=== PATIENT | female | born 1965 | race Asian ===

== ENCOUNTER 2023-09-28 13:01 | Outpatient (CLI) | payer OTHER, SELFPAY | END 2023-09-28 13:02 | disposition home or self-care (01) | LOC: LBO 13:02 | PROVIDERS: Visit Provider Internal Medicine Hematology | DX: C91.10 Chronic lymphocytic leukemia of B-cell type not having achieved remission (principal) | CPT/HCPCS: 36415; 81405 ==

== ENCOUNTER 2023-10-10 12:23 | Outpatient (REF) | payer OTHER, SELFPAY ==
[2023-10-10 15:33] LABS: Anion Gap 11.9 mmol/L (3-11); BUN 11 mg/dL (7-18); CO2 25.1 mmol/L (21.0-32.0); CREATININE 0.7 mg/dL (0.55-1.02); Calcium 9.3 mg/dL (8.5-10.1); Chloride 105 mmol/L (98-107); Estimated GFR 100.19 (mL/min/1.73m2); Glucose 104 mg/dL (74-106); Potassium 4.6 mmol/L (3.5-5.1); Sodium 142 mmol/L (136-145); Vitamin B12 342 pg/mL (193-986)
[2023-10-10 15:55] LABS: Hemoglobin A1C 6.1 % (<5.7)
== END 2023-10-10 12:24 | disposition home or self-care (01) ==
LOC: NCHCN 12:23
PROVIDERS: Visit Provider Family Medicine
DX: E11.9 Type 2 diabetes mellitus without complications (principal); I10 Essential (primary) hypertension; E53.8 Deficiency of other specified B group vitamins
CPT/HCPCS: 80048; 82607; 83036

== ENCOUNTER → 2023-10-11 01:46 | Outpatient (CLI) | payer OTHER, SELFPAY ==
--- NOTE | 2023-10-11 09:43 | DI.RAD_ITS ---
Exam(s) XR KNEE LT 3V AP,LAT,KATINA EXAM: XR KNEE LT 3V AP,LAT,KATINA CLINICAL HISTORY: LT KNEE PAIN, M25.562. TECHNIQUE: 2D digital imaging was performed of the left knee. Four images were obtained. AP, later al and PA tunnel views were obtained. COMPARISON: No exams were available for comparison FINDINGS: BONES: No acute fracture is present. No bony destructive lesion is seen. JOINTS: The knee is normally aligned. There is a small joint effusion. Mild spurring is seen at the posterior patella. No loose body. SOFT TISSUE: Normal. IMPRESSION: 1. Normal radiographs of the left knee. Mild degenerative changes of the knee. 2. Small joint effusion. DATA REPOSITORY: RADIATION DOSE DELIVERED:
== END ==
PROVIDERS: Visit Provider Family Medicine
DX: M25.562 Pain in left knee (principal)
CPT/HCPCS: 73562

== ENCOUNTER 2023-12-15 12:05 | Outpatient (CLI) | payer OTHER, SELFPAY ==
[2023-12-15 11:02] LABS: Abs Immature Grans 0.01 10^3/uL (0.0-0.06); Absolute Basophil Count 0.07 10^3/uL (0.0-0.2); Absolute Eosinophil Count 0.15 10^3/uL (0.0-0.7); Absolute Lymphocyte Count 1.87 10^3/uL (1.2-3.4); Absolute Monocyte Count 0.43 10^3/uL (0.1-0.8); Absolute Neutrophil Count 3.76 10^3/uL (1.2-6.7); Basophils % 1.1 %; Eosinophils % 2.4 %; HCT 41.2 % (36.0-46.0); HGB 13.8 g/dL (11.2-15.7); Immature Grans % 0.2 %; Lymphocytes % 29.7 %; MCH 29.4 pg (27.0-33.0); MCHC 33.5 % (32.0-36.0); MCV 88 fL (80-95); MPV 9.1 fL (8.0-11.0); Monocytes % 6.8 %; Neutrophils % 59.8 %; Platelet Count 287 10^3/uL (130-400); RDW 13.2 % (11.7-14.6); RDW-SD 42.5 fL; WBC 6.29 10^3/uL (4.4-10.8)
[2023-12-15 11:48] LABS: Iron 65 ug/dL (50-170); Total Iron Binding Capacity 380 ug/dL (250-450); Transferrin Sat 17 % (15-50)
[2023-12-15 11:59] LABS: ALT 108 U/L (14-59); AST 55 U/L (15-37); Alkaline Phosphatase 130 U/L (46-116); Anion Gap 13.4 mmol/L (3-11); BUN 12 mg/dL (7-18); CO2 23.6 mmol/L (21.0-32.0); CREATININE 0.8 mg/dL (0.55-1.02); Calcium 9.3 mg/dL (8.5-10.1); Chloride 106 mmol/L (98-107); Estimated GFR 85.35 (mL/min/1.73m2); Ferritin 72 ng/mL (8-252); Glucose 103 mg/dL (74-106); Sodium 143 mmol/L (136-145); Total Protein 7.9 g/dL (6.4-8.2)
[2023-12-15 12:22] LABS: LDH 185 U/L (81-234)
[2023-12-15 20:06] LABS: HBs Antibody, Quant <3.1 mIU/mL (See Note); Hepatitis B Surface Ab Negative (See Note)
[2023-12-15 20:20] LABS: Hepatitis B Surface Ag Negative (Negative)
[2023-12-15 20:55] LABS: Hep B Core Antibody Negative (Negative)
[2023-12-15 20:58] LABS: HIV-1/2 Ag & Ab Screen Negative (Negative)
[2023-12-15 21:12] LABS: Hepatitis C Ab w Rflx HCV PCR Negative (Negative)
[2023-12-16 09:07] LABS: IgA 257 mg/dL (85-499); IgG 1216 mg/dL (610-1616); IgM 48 mg/dL (35-242)
[2023-12-16 18:24] LABS: Beta-2-Microglobulin 1.54 mcg/mL
== END 2023-12-15 12:06 | disposition home or self-care (01) ==
LOC: LBO 12:29
PROVIDERS: PCP Family Medicine; Visit Provider Internal Medicine Hematology & Oncology
DX: C91.12 Chronic lymphocytic leukemia of B-cell type in relapse (principal)
CPT/HCPCS: 36415; 80053; 82784; 86704; 86706; 86803; 87340; 87389; 82232; 82728; 83540; 83550; 83615; 85025

== ENCOUNTER 2023-12-15 14:39 | Outpatient (CLI) | payer OTHER, SELFPAY ==
--- NOTE | 2023-12-15 09:00 | DI.RAD_ITS ---
Exam(s) XR HIP LT COMPLETE AP PELVIS EXAM: XR HIP LT COMPLETE AP PELVIS CLINICAL HISTORY: hip pain. TECHNIQUE: 2D digital imaging was performed of the left hip. Two views were obtained. AP pelvis an d lateral left hip views were obtained. COMPARISON: No exams were available for comparison FINDINGS: BONES: No acute fracture is present. No bony destructive lesion is seen. JOINTS: No dislocation present. There is mild narrowing of the superior joint space of the left hip. Mild spurring is seen in the lateral acetabular roof. SOFT TISSUE: There is a vascular clips seen in the pelvis. IMPRESSION: Mild degenerative changes are seen in the left hip. DATA REPOSITORY: RADIATION DOSE DELIVERED:
== END 2023-12-15 14:40 | disposition home or self-care (01) ==
LOC: DIORS 15:22
PROVIDERS: PCP Family Medicine; Visit Provider Student in an Organized Health Care Education/Training Program
DX: M25.552 Pain in left hip (principal)
CPT/HCPCS: 20610; 99203; J1010; 73502

== ENCOUNTER 2024-01-11 16:49 | Outpatient (REF) | payer OTHER, SELFPAY ==
[2024-01-11 15:22] LABS: Vitamin B12 272 pg/mL (193-986)
== END 2024-01-11 16:50 | disposition home or self-care (01) ==
LOC: NCHCN 16:49
PROVIDERS: PCP Family Medicine; Visit Provider Family Medicine
DX: E53.8 Deficiency of other specified B group vitamins (principal)
CPT/HCPCS: 82607

== ENCOUNTER → 2024-02-09 13:29 | Outpatient (BNVA) | payer OTHER, SELFPAY | PROVIDERS: PCP Family Medicine; Referring Provider Family Medicine; Visit Provider Student in an Organized Health Care Education/Training Program | DX: M17.12 Unilateral primary osteoarthritis, left knee (principal) | CPT/HCPCS: 99214 ==

== ENCOUNTER 2024-03-05 03:51 | Outpatient (CLI) | payer OTHER, SELFPAY ==
[2024-03-05 15:32] LABS: HCT 42.5 % (36.0-46.0); MCH 29.6 pg (27.0-33.0); MCHC 32.9 % (32.0-36.0); MCV 90 fL (80-95); MPV 8.8 fL (8.0-11.0); Platelet Count 300 10^3/uL (130-400); RBC 4.73 10^6/uL (3.93-5.22); RDW 13.2 % (11.7-14.6); RDW-SD 43.6 fL; WBC 7.55 10^3/uL (4.4-10.8)
[2024-03-05 15:52] LABS: Hemoglobin A1C 5.9 % (<5.7)
[2024-03-05 16:17] LABS: BUN 10 mg/dL (7-18); CREATININE 0.9 mg/dL (0.55-1.02); Calcium 9.4 mg/dL (8.5-10.1); Chloride 106 mmol/L (98-107); Estimated GFR 73.64 (mL/min/1.73m2); Glucose 95 mg/dL (74-106); Potassium 3.8 mmol/L (3.5-5.1); Sodium 143 mmol/L (136-145)
== END 2024-03-05 03:52 | disposition home or self-care (01) ==
LOC: LBO 03:52
PROVIDERS: PCP Family Medicine; Visit Provider Student in an Organized Health Care Education/Training Program
DX: M17.12 Unilateral primary osteoarthritis, left knee (principal); Z01.818 Encounter for other preprocedural examination; E11.9 Type 2 diabetes mellitus without complications
CPT/HCPCS: 36415; 80048; 85027; 83036

== ENCOUNTER 2024-03-05 15:49 | Outpatient (CLI) | payer OTHER, SELFPAY ==
--- NOTE | 2024-03-05 14:30 | DI.RAD_ITS ---
Exam(s) XR KNEE LT 1V XR STANDING ALIGNMENT EXAM: XR STANDING ALIGNMENT and XR knee LT 1 V CLINICAL HISTORY: pre op. TECHNIQUE: 2D digital imaging was performed. Six images were obtained. COMPARISON: CR XR KNEE LT 3V AP,LAT,KATINA from 10/11/2023 CR XR HIP LT COMPLETE AP PELVIS from 12/15/2023 FINDINGS: BONES: The hips are well maintained. The right knee is well maintained. There osteophytes seen in a ll 3 joint compartments of the left knee. There is mild narrowing of the medial femoral tibial joint . There is a small left joint effusion. The ankles are well maintained.There is no significant leg length discrepancy. SOFT TISSUE: Normal. IMPRESSION: Degenerative changes seen in the left knee. DATA REPOSITORY: RADIATION DOSE DELIVERED:
== END 2024-03-05 15:50 | disposition home or self-care (01) ==
LOC: DIORS 15:49
PROVIDERS: PCP Family Medicine; Visit Provider Physician Assistant
DX: M17.12 Unilateral primary osteoarthritis, left knee (principal); Z01.818 Encounter for other preprocedural examination
CPT/HCPCS: 73560; 77073

== ENCOUNTER 2024-04-18 08:50 | Day surgery (SDC) | payer OTHER, SELFPAY ==
[2024-04-18] VITALS (22 sets, daily range): BP systolic 104–176; BP diastolic 47–85; PULSE 57–99; RESP 11–22; TEMP 36–36.6; O2SAT 67–99; BMI 25.8
--- NOTE | 2024-04-18 07:25 | PDOC.DSDIS_ITS ---
Date of service: 04/18/24 Time of Service: 07:25 Discharge Plan Disposition Patient Disposition: Home Condition: Good Discharge Details Reason For Visit: L TKR Attending Provider: Singh Conteh Primary Care Provider: Celi Kulkarni Home Meds and New Rx's Prescriptions: New celecoxib 200 mg capsule 200 mg PO BID Qty: 60 0RF aspirin 81 mg tablet,delayed release (DR/EC) 81 mg PO BID Qty: 60 0RF tramadol 50 mg tablet 50 mg PO Q4H PRNQty: 20 0RF acetaminophen 500 mg tablet 1,000 mg PO TID Qty: 90 3RF pantoprazole 40 mg tablet,delayed release (DR/EC) 40 mg PO DAILY Qty: 30 0RF dexamethasone 4 mg tablet 4 mg PO DAILY Qty: 2 0RF gabapentin 300 mg capsule 300 mg PO QHS Qty: 14 0RF Continued rosuvastatin 10 mg tablet 10 mg PO DAILY losartan 25 mg tablet 25 mg PO DAILY metformin 1,000 mg tablet 1,000 mg PO BID Discharge Instructions Additional Instructions: Total Knee Discharge Instructions Activity: The most important activity is to walk and to work on gentle motion (both flexion and extension). You should try to take short walks a few times a day. It is important that when resting you work on keeping the knee straight. Avoid putting a pillow behind the knee as this will encourage flexion. Work on range of motion exercises as provided by Physical Therapy. - Start outpatient physical therapy within 2 weeks. - You should wear the DERRICK hose on both legs for 2 weeks. You may remove these at night. You may also use any compression sock in place of the DERRICK hose. - Utilize [employer] to review exercises, see videos on exercises and obtain basic information pertaining to your surgery and your recovery. Dressing: Remove the Forrest wrap by 2 days after your surgery and put on the DERRICK stocking given to you from the hospital. Keep the surgical dressing (underneath the FORREST wrap) in place for at least one week. After the first week it may be removed and replaced with light gauze and tape or nothing. The wound and dressing may get wet after 3 days but avoid soaking the dressing or otherwise it will need to be changed. Many people prefer covering the dressing with cling wrap (saran wrap) to minimize it from getting soaked. If it gets wet, just pat dry. If it starts to peel off then it will need to be changed. Medications: - You should take Tylenol and anti-inflammatory Celebrex as your primary pain control medications. If the Celebrex is too expensive or not covered, please call the office for another alternative (Advil/Ibuprofen or Naproxen/Aleve) - You have been prescribed a stronger pain medication tramadol for breakthrough pain, take as needed as prescribed. - You have also been prescribed a stomach acid reduction agent Pantoprozole to help reduce stomach acid and reflux. - You have been prescribed Gabapentin to take at night for restlessness and nerve pain. - You will be taking Aspirin 81mg twice a day for DVT prevention unless instructed otherwise. - You have also been prescribed Decadron to take to control post-operative nausea and pain. You will start this tomorrow. - If you have constipation you should take Colace or Miralax (both [id number]). It takes most people 3-4 days to have a bowel movement. Follow-up: 2 weeks If you have any acute concerns or questions, please do not hesitate to contact the office at [phone]. You may contact Dr. Conteh with any questions after hours through the hospital at [phone] or on his cell phone at [phone]. Referrals: Singh Conteh MD [ [facility] STAFF PHYSICIAN] - Equipment/Supplies: Walker Activity:: Activity as Tolerated Shower/Bathe:: 72 hours Diet:: As Tolerated Discharge Orders Discharge Orders: Discharge Order (Routine); Ordered 04/18/24 Ordered By: Isidoro Allen DS: Diagnosis Discharge Diagnosis (1) Osteoarthritis of left knee: Status: Chronic
--- NOTE | 2024-04-18 07:53 | ANES.PREOP_ITS ---
General Info Date of Service Date Performed: 04/18/24 Height: 4 ft 11.5 in Weight: 58.967 kg Body Mass Index (BMI): 25.8 Surgical Procedure: Operation Date: 04/18/24 09:55 Proposed Procedure Side Surgeon p Knee Total Arthroplasty, Cementless Left Singh Conteh MD Meds Allergies and Home Medications Allergies Allergy/AdvReac Type Severity Reaction Status Date / Time oxycodone AdvReac Nausea Verified 04/18/24 09:15 Home Medication ?Medication ?Instructions ?Recorded losartan 25 mg tablet 25 mg PO DAILY 08/16/23 metformin 1,000 mg tablet 1,000 mg PO BID 08/16/23 rosuvastatin 10 mg tablet 10 mg PO DAILY 08/16/23 acetaminophen 500 mg tablet 1,000 mg (2 x 500 mg) PO TID #90 04/18/24 tabs aspirin 81 mg tablet,delayed 81 mg PO BID #60 tabs 04/18/24 release celecoxib 200 mg capsule 200 mg PO BID #60 caps 04/18/24 dexamethasone 4 mg tablet 4 mg PO DAILY #2 tabs 04/18/24 gabapentin 300 mg capsule 300 mg PO QHS #14 caps 04/18/24 pantoprazole 40 mg tablet,delayed 40 mg PO DAILY #30 tabs 04/18/24 release tramadol 50 mg tablet 50 mg PO Q4H PRN #20 tabs 04/18/24 Current Visit Medications: Current Medications Generic Name Dose Route Start Last Admin Trade Name Freq PRN Reason Stop Dose Admin Acetaminophen 1,000 mg 04/18/24 06:00 Acetaminophen 500 Mg Tab PO 04/18/24 23:59 PREOP KYA Acetaminophen 1,000 mg 04/18/24 07:24 Acetaminophen 500 Mg Tab PO 05/18/24 07:23 TID PRN PRN Analgesia Celecoxib 400 mg 04/18/24 06:00 Celecoxib 200 Mg Cap PO 04/18/24 23:59 PREOP KYA Docusate Sodium 100 mg 04/18/24 07:24 Docusate Sodium 100 Mg Cap PO 05/18/24 07:23 BID PRN PRN Constipation Gabapentin 300 mg 04/18/24 06:00 Gabapentin 300 Mg Cap PO 04/18/24 23:59 PREOP KYA Ringer's Solution 1,000 mls @ 80 mls/hr 04/18/24 06:00 IV 04/18/24 23:59 INFUSION KYA Cefazolin Sodium/Dextrose 2 gm in 50 mls @ 100 mls/hr 04/18/24 06:00 Ancef Duplex IVPB 04/18/24 23:59 PREOP KYA Tranexamic Acid/Sodium Chloride 1,000 mg in 100 mls @ 600 mls/hr 04/18/24 06:00 IVPB 04/18/24 23:59 PREOP KYA IV Miscellaneous Supplies 1 each 04/18/24 06:00 Iv Access IV 04/18/24 23:59 DIRECTED KYA Ondansetron HCl 4 mg 04/18/24 07:24 Ondansetron 4 Mg/2 Ml Vial IVP 05/18/24 07:23 Q6H PRN PRN Nausea Polyethylene Glycol 17 gm 04/18/24 07:24 Polyethylene Glycol 3350 17 Gm Packet PO 05/18/24 07:23 BID PRN PRN Constipation Sodium Chloride 0 ml 04/18/24 06:00 Normal Saline Flush 10 Ml Syr IV 04/18/24 23:59 PRN PRN Sodium Chloride 0 ml 04/18/24 06:00 Normal Saline 10 Ml Vial IJ 04/18/24 23:59 DIRECTED PRN Sterile Water 0 ml 04/18/24 06:00 Water,Injection,Sterile 10 Ml Vial IJ 04/18/24 23:59 DIRECTED PRN Tramadol HCl 50 mg 04/18/24 07:24 Tramadol 50 Mg Tab PO 05/18/24 07:23 Q4H PRN PRN Pain PFSH Active Problems Active Problems: Problem Status Onset Code Arthritis of left hip Acute M16.12 Left hip pain Acute M25.552 Osteoarthritis of left knee Chronic M17.12 Diabetes mellitus Chronic E11.9 Vitamin D deficiency Acute E55.9 B-cell chronic lymphocytic leukemia Acute C91.10 Mixed hyperlipidemia Acute E78.2 Essential hypertension Acute I10 Medical History Medical History (Updated 04/18/24 @ 09:27 by Armando Snyder RN) Chronic a-fib Per pt. states she no longer has this as she had a cardiac ablation done 4 years ago in [place] B12 deficiency Surgical History Surgical History (Updated 04/18/24 @ 09:27 by Armando Snyder RN) History of cardiac radiofrequency ablation (~2019) Status post cholecystectomy H/O right breast biopsy History of carpal tunnel release Left Tobacco Smoking/Tobacco Use Status: Never Alcohol Alcohol Intake: current Alcohol intake frequency: holidays/special occasions only Substance Use Substance use: Never Substance use type: does not use Vital Signs and Lab Results Vital Signs Most Recent Vital Signs in EMR: Temp Pulse Resp BP Pulse Ox 36.6 C 70 16 158/85 H 98 04/18/24 09:19 04/18/24 09:19 04/18/24 09:19 04/18/24 09:19 04/18/24 09:19 Lab Results Blood Type / Crossmatch: No Data to Display Complete Blood Count: No Data to Display Complete Metabolic Panel: No Data to Display Liver Function Panel: No Data to Display Coagulation Panel: No Data to Display Cardiac Panel: No Data to Display Arterial Blood Gas: No Data to Display Venous Blood Gas: No Data to Display Pancreas Panel: No Data to Display Thyroid Panel: No Data to Display Infectious Disease: No Data to Display Blood Cultures: No Data to Display Toxicology Panel: No Data to Display Anesthesia Assessment and Plan Anesthesia History Personal History: No History of Anesthesia Complications Family History: No Family History of Anesthesia Complications Exercise Tolerance Exercise Tolerance: Metabolic Equivalents>4 Cardiac & Pulmonary Exam Cardiac Exam: Normal S1/S2 Heart Sounds Pulmonary Exam: Clear Bilateral Breath Sounds Implantable Cardiac Device Does patient have a Pacemaker or an ICD?: No Airway Exam Known Difficult Airway: No Mallampati Class: 3 Mouth Opening: Narrow (< 3cm) Thyromental Distance: Greater than 3 cm Neck Range of Motion: Full ROM Neck Circumference: Normal Teeth Condition: Normal Dentition ASA Classification ASA Score: ASA 2 Emergency Case?: No NPO Status NPO Status: NPO Clears >2 hours, Solids >8 hours Anesthesia Plan Resuscitation Status: Full Code Anesthesia Technique: Spinal Anesthesia Airway Planned: Natural Airway Pain Management: Surgeon and patient request nerve block Monitors Used: Standard Monitors Preoperative Comments:: 59 yo female for TKA. Sig PMHx: s/p SVT/afib ablation (no episodes of afib since, doing well), HTN (losartan - hasn't taken in ~a month. Home BPs 130-140/60-70s), DM2 (a1c 5.9%. Metformin. does not check BS at home), CLL, never smoker, occ EtOH. Denies GERD appropriately NPO. Discussed GA vs spinal, would like spinal.
[2024-04-18] MEDS: Acetaminophen 500 MG TAB 1000 MG PO (09:40)
[2024-04-18] MEDS: Gabapentin 300 MG CAP PO (09:40)
[2024-04-18] MEDS: Celecoxib 200 MG CAP 400 MG PO (09:41)
--- NOTE | 2024-04-18 09:41 | HPE_ITS ---
Assessment and Plan Assessment and plan (1) Arthritis of left knee: Status: Acute Assessment and plan: Jo is a 59-year-old female who has known arthritis about the left knee. She is failed other nonoperative options and is here today for left knee replacement. I had a long discussion in regards to surgical replacement of the knee. I reviewed the necessary time for rehabilitation following the procedure. Furthermore, I went over in detail the possible complications of knee replacement. These include but are not limited to bleeding, infection, pain, stiffness, weakness, damage to nerves, damage to vessels, damage to muscle and tendon, fracture, leg length inequality, wound healing complications, instability, component loosening, and blood clot. Questions were answered. I again expressed that this is a surgery to improve functional quality of life. After a review of the presented information and risks, she desired to proceed. History of Present Illness History of Present Illness Chief Complaint: Left knee pain Narrative: Jo is a 59-year-old female who has ongoing left knee pain. She has failed a host of conservative options including injection, anti-inflammatories, physical therapy, and activity modification. Her knee bothers her with all activities. She has arthritis about the left knee and is electing for knee replacement. She is here today for that procedure. Please see the previous history and physical performed in the office. Her surgery was postponed due to an upper respiratory infection. She no longer has any symptoms of cough. She denies any chest pain or shortness of breath. She denies any fevers or chills. Review of Systems All systems reviewed & are unremarkable except as noted in HPI and below PFSH All Active Problems (Updated 04/18/24 @ 09:43 by Singh Conteh MD) Arthritis of left knee (Acute) History of total left knee replacement (Acute 04/18/24) Arthritis of left hip (Acute) Left hip pain (Acute) Diabetes mellitus (Chronic) Vitamin D deficiency (Acute) B-cell chronic lymphocytic leukemia (Acute) Mixed hyperlipidemia (Acute) Essential hypertension (Acute) Medical History Chronic a-fib Per pt. states she no longer has this as she had a cardiac ablation done 4 years ago in [place] B12 deficiency Surgical History History of cardiac radiofrequency ablation (~2019) Status post cholecystectomy H/O right breast biopsy History of carpal tunnel release Left Social History Smoking/Tobacco Use Status: Never Smoking risk assessment performed?: Yes Alcohol Intake: current Alcohol Intake frequency: holidays/special occasions only Drug use: Never Substance use type: does not use Housing: house Do you feel safe at home: Yes Do you feel safe in your relationship?: Yes Meds Allergies and Home Medications Allergies Allergy/AdvReac Type Severity Reaction Status Date / Time oxycodone AdvReac Nausea Verified 04/18/24 09:15 Home Medications ?Medication ?Instructions ?Recorded ?Confirmed ?Type losartan 25 mg tablet 25 mg PO DAILY 08/16/23 04/18/24 History metformin 1,000 mg tablet 1,000 mg PO BID 08/16/23 04/18/24 History rosuvastatin 10 mg tablet 10 mg PO DAILY 08/16/23 04/18/24 History acetaminophen 500 mg tablet 1,000 mg (2 x 500 mg) PO TID #90 04/18/24 Rx tabs aspirin 81 mg tablet,delayed 81 mg PO BID #60 tabs 04/18/24 Rx release celecoxib 200 mg capsule 200 mg PO BID #60 caps 04/18/24 Rx dexamethasone 4 mg tablet 4 mg PO DAILY #2 tabs 04/18/24 Rx gabapentin 300 mg capsule 300 mg PO QHS #14 caps 04/18/24 Rx pantoprazole 40 mg tablet,delayed 40 mg PO DAILY #30 tabs 04/18/24 Rx release tramadol 50 mg tablet 50 mg PO Q4H PRN #20 tabs 04/18/24 Rx Exam Const General: cooperative, healthy appearing, comfortable and no acute distress Resp Effort & Inspection: normal respiratory effort Auscultation: clear to auscultation bilaterally Cardio Rate: regular rate Rhythm: regular rhythm Results Last Vital Signs Temp 36.6 C 04/18/24 09:19 Pulse 70 04/18/24 09:19 Resp 16 04/18/24 09:19 BP 158/85 H 04/18/24 09:19 Pulse Ox 98 04/18/24 09:19
[2024-04-18] MEDS: Lactated Ringers 1,000 ML 80 ML IV (10:04)
--- NOTE | 2024-04-18 10:10 | W.ANESVAS ---
Midline Placement Date Performed: 04/18/24 Procedure Time: 09:40 Requesting Provider: Fabio Chin Procedure Location: Day Surgery Unit Sedation Given (Indicate Dose Given): No Sedation given Patient Mental Status: Awake Sterility: Hand Hygiene, Surgical Cap, Sterile Drape/Sheet and Chlorhexidine Laterality: Left Insertion Site: Brachial Midline Device: PowerGlide Pro 20G Catheter Length: 10 cm Midline Procedure Procedure: 1% Lidocaine to skin and subcutaneous tissue with 25g needle and Catheter placed without resistance Dressing: Tegaderm Applied Blood Return: Present Flushes: Easily Ultrasound: Sterile probe cover and gel used Ultrasound Image Saved?: Yes Number of Attempts (See previous attempts in note section): 1 Procedure Tolerated: No Complications Procedure Outcome: Successful Procedure Comment:: small veins, previous IV attempts without success. midline placed. Performed By: Fabio Chin
--- NOTE | 2024-04-18 10:12 | W.ANESNERVE ---
Nerve Block Single Injection Procedure Date and Time Date Performed: 04/18/24 Procedure Start: 09:51 Location Where Procedure Performed Procedure Location: Day Surgery Unit Reason Performed: Postoperative Analgesia Requesting Provider: Singh Conteh Timeout Performed Timeout Performed: Yes Monitoring Used ECG, Blood Pressure and SpO2 Sterility Sterility: Hand Hygiene, Surgical Cap, Surgical Mask, Sterile Gloves and Chlorhexidine Sedation Given During Procedure Sedation Given (Indicate Dose Given): No Sedation given Patient Mental Status Patient Mental Status: Awake Nerve Block 1st Nerve Block: Laterality: Left Block Type: Adductor Canal Ultrasound Image Saved?: Yes Needle / Catheter Used: 100mm SonoPlex II Local Anesthetic Bolus (Indicate Dose Given): Lidocaine used for local infiltration of skin and Bupivacaine 0.25% Dose:: 5 mL Additives (Indicate Dose Given): None Ultrasound: Sterile probe cover and gel used Nerve Stimulator: Supplement to Ultrasound use and No twitch or parasthesia noted < 0.5 mA Paresthesia: None Procedure Tolerated: No Complications Procedure Outcome: Successful Performed By: Fabio Chin 2nd Nerve Block: Laterality: Left Block Type: Other (anterior femoral cutaneous) Ultrasound Image Saved?: Yes Needle / Catheter Used: 100mm SonoPlex II Local Anesthetic Bolus (Indicate Dose Given): Bupivacaine 0.25% Dose:: 5 mL Additives (Indicate Dose Given): None Ultrasound: Sterile probe cover and gel used Nerve Stimulator: Not Used Paresthesia: None Procedure Tolerated: No Complications Procedure Outcome: Successful Performed By: Fabio Chin
[2024-04-18] MEDS: ceFAZolin 2 GM/50 ML BAG IVPB (10:24)
[2024-04-18] MEDS: TRANEXAMIC ACID/SOD. CHL. 1,000 MG/100 ML BAG 600 MG IVPB (10:32)
--- NOTE | 2024-04-18 12:10 | W.ANESPOSTOP ---
Postoperative Evaluation Date, Time and Location Date Performed: 04/18/24 Time Performed: 12:10 Patient Location: PACU Vital Signs Most Recent Imported Vital Signs: Most Recent Vital Signs Temp Pulse Resp BP Pulse Ox 36.2 C L 61 19 126/57 L 98 04/18/24 12:01 04/18/24 12:06 04/18/24 12:06 04/18/24 12:06 04/18/24 12:06 Pain Score Most Recent Pain Score: Most Recent Pain Score Pain Level 0 04/18/24 12:01 Assessment Mental Status: Awake (Alert & Oriented to Patient Baseline) Airway and Respiratory Function: Patent airway with normal (patient baseline) respiratory exam Cardiovascular Function: Hemodynamically Stable Hydration Status: Adequately Hydrated Nausea & Vomiting: No Nausea or Vomiting Pain: Pain is tolerable per patient (Reports heavy and tight but no pain) Peripheral Nerve Block: Regional nerve block not resolved at time of post operative discharge
--- NOTE | 2024-04-18 12:27 | W.PM.OP ---
Date of service: 04/18/24 Time of Service: 10:30 Operative Note Operative Note DATE OF PROCEDURE: 04/18/24 PRE-OP DIAGNOSIS: Left Knee Osteoarthritis POST-OP DIAGNOSIS: same PROCEDURE: Left Total Knee Replacement SURGEON: Singh Conteh REAL ESTATE PROFESSIONAL: Roldan Allen ANESTHESIA TYPE: Spinal Refer to Anesthesia Record ESTIMATED BLOOD LOSS: 50 PATHOLOGY: none sent TOURNIQUET TIME: 0 COMPLICATIONS: None Patient was transported to: PACU Patient's condition: stable Implants: 1. Depuy Attune Cementless Cruciate Retaining Femoral Component, Size 3 2. Depuy Attune Cementless Fixed Bearing Tibial Component, Size 3 3. Depuy Attune 3x6mm CR/FB Poly 4. Depuy Attune Patellar Component, Size 32 Indications: I have seen Jo in clinic for symptoms of knee arthritis, confirmed with radiographic findings. She has exhausted nonoperative methods and was having significant limitations in daily function and desired better function and less pain. I discussed the technical details of a knee replacement. I explained the risks of the procedure to include, but not limited to, bleeding, infection, pain, stiffness, fracture, damage to nerves and vessels, damage to muscles and tendons, loosening, need for repeat procedure, blood clot and cardiopulmonary demise. Despite these risks, Jo elected to proceed. Findings: There was notable chondromalacia and deformity of the medial femur primarily. Procedure Description: Jo was greeted in the preoperative holding area where the correct side was identified and marked. The consent was reviewed with the patient and signed. The history and physical was updated. All questions were answered. Preoperative medications were administered: Acetaminophen 1000mg, Celebrex 400mg, and Gabapentin 300mg. An adductor canal block was then administered by the anesthesia team in the PACU. She was taken back to the operating room. A spinal anesthestic was then administered. The patient was placed into the supine position on the operating room table. A nonsterile tourniquet was placed high onto the leg but only used for cementing. Posts were placed for positioning during the procedure. All bony prominences were well padded. Prophylactic antibiotics in the form of Cefazolin were administered. 1g of Tranxemic Acid was given intravenously within 30 minutes of incision. The left leg was then prepped with Chloraprep and draped in a standard fashion with impervious stockinette. A second prep with Chloraprep was performed prior to application of Iodine impregnated skin protection. A timeout to confirm correct identity, side and site, procedure, allergies, anesthesia, and medical concerns was performed. With the knee in some flexion, a midline incision was made overlying the knee. Full thickness skin flaps were raised once the extensor mechanism was encountered. These were raised medially and laterally. Any bleeding was controlled with electrocautery. Once the extensor mechanism was fully exposed, a medial parapatellar arthrotomy was performed in a flexed position. All bleeding from the arthrotomy and the geniculate arteries was coagulated. A medial subperiosteal peel was performed with electrocautery to the midcoronal plane. The fat pad was removed while keeping the patellar tendon protected. The anterior distal femur synovium was removed for later visualization. The ACL and PCL were resected and the anterior horn of the lateral meniscus was transected. The knee was then flexed with the patella everted. Using a step drill, and based on preoperative templating, the femoral canal was entered. This was done with a step drill without any difficulty. The intramedullary distal femoral cut guide was inserted, set to a 6 degree valgus cut and 9mm cut thickness. The distal femoral cut guide was then held in position and pinned. With the soft tissues protected, the distal cut was performed. This was passed over a few times to ensure a planar cut. I then turned attention to the tibia. The extramedullary guide was placed onto the leg. The distal aspect was slid medial to adjust for position of center of ankle and stay in line with shaft of the tibia. Approximately 3-5 degrees of posterior slope was kept in the proximal cutting guide. The center of the guide was aligned with the PCL. The stylus was used to assess cut thickness. The medial side, most involved side, was set for a 6mm cut, corresponding to 9mm laterally. This was then held in position and pinned into place with 2 additional pins and a cross pin for stability. The medial and lateral collateral ligaments were protected and the cut was performed. With this completed, it was assessed and noted to be of appropriate dimensions. The guide was removed. A spacer block was inserted and the knee was brought into extension. The 6mm spacer block provided full extension, without hyperextension and with stability of both the medial and lateral collateral ligaments was assessed. The pins from the femur and the tibia were then removed. The distal femur was then sized. The anterior stylus was placed onto the lateral ridge of the anterior femur. This indicated a size 3 femur. The external rotation of the guide was adjusted to 3 degrees to match the epicondylar axis, perpendicular to [place]?s line. The 4-in-1 cutting guide was the placed. The posterior medial femur cut was evaluated and appeared of good thickness. The spacer block was inserted underneath the cutting guide and stability was confirmed in 90 degrees of flexion. An juan f wing was used to confirm appropriate position of the anterior cut to avoid notching. This cutting guide was ensured to be flush on the cut surface and then pinned into place with headed pins. While protecting the soft tissues, quad tendon, and collateral ligaments, the anterior and posterior cuts were performed with a saw. The central two pins were removed and the posterior and anterior chamfers were cut next. The notch-cutting guide was placed. This was pinned to lateralize the femoral component as much as possible while keeping it flush on the cut surface. This was then pinned into position. A reciprocating saw was used to make the notch cut. A rasp smoothed the cut surfaces. The medial and lateral menisci were removed. A trial femoral component was then inserted, impacted down to the cut surfaces, and the lug holes were drilled. A provisional trial tibial component was placed and the knee was brought through range of motion. There was noted to be excellent extension and flexion. There was no significant instability. The patella was tracking without thumbs. A size 6mm polyethylene component provided the best range of motion and stability with less than 2mm gapping with medial and lateral stress and full extension without significant hyperextension. The tibial cut surface was fully exposed. The tibia was then sized as a 3. The tibia had been previously marked during trialing to correspond to the center of the tibial component to help with rotation. The trial was aligned to this roldan, approximately rotated to the medial 1/3rd of the tibial tubercle. The trial was pinned into place. The tibia was prepared with a reamer and a keel punch and lug holes. The knee was then brought into extension and the patella was measured as 21mm. Using the patellar clamp and cut guide, this was resected to a flat surface with at least 13mm of thickness remaining. The size 32 patella fit the best. This was oriented and then clamped into position. The lugs were drilled. The trial components were removed. The final components were opened on the back table. The periosteal and capsular tissues, especially posteriorly, around the knee were then systematically injected with a periarticular cocktail consisting of 246mg of Ropivacaine, 0.5mg of Epinephrine, 0.08mg of Clonidine, and 30mg of Ketorolac, diluted to 100cc. On the back table, with the implants opened, the cement was mixed. One batch of high viscosity cement was prepared with vacuum assistance. After the cement was ready a small amount was placed on the cut surface of the patella and the patellar button was clamped into position and held. While the cement was hardening, the cementless knee components were placed. Starting with the tibial component, the tibia was subluxed anteriorly and the lug holes of the component were lined up. The tibia was then impacted with an impactor and mallet until the tibial component was in contact with the tibia. The final polyethylene component was inserted. Then, the femoral component was inserted. The lug holes were aligned and the component was impacted into position. The knee was irrigated with Surgiphor Betadine solution. This was allowed to sit in the knee for 3 minutes and then it was irrigated out with saline. After the cement had finally cured, approximately 15min, the clamp was removed from the patella and the knee was taken through range of motion. The patella was tracking with a no-thumbs technique. The capsule was then reapproximated with a No. 1 Vicryl at multiple locations. The capsule was finally closed with a No. 2 Stratafix, barbed suture. The second dosing of 1g TXA was started. Deep tissues were then reapproximated with 0 Vicryl and 2-0 Vicryl. The skin was closed with a running 3-0 Monocryl in a subcuticular fashion. This was reinforced with skin glue. A Mepilex silver dressing was applied along with a [id number] JACOB wrap. A CryoCuff was applied. Jo was transferred to the hospital bed without difficulty an suffering no apparent complication. Jo has a good prognosis. Physical therapy will start today and without restrictions, weight-bearing as tolerated. Aspirin 81mg BID will be used for DVT prophylaxis.
[2024-04-18] MEDS: traMADol 50 MG TAB PO (12:51)
--- NOTE | 2024-04-18 14:23 | PT.INIE ---
PT Notes Visit Reasons: L TKR Physical Therapy Day Surgery Initial Evaluation Date: 04/18/2024 Referring Doctor: FRANCISCO Lopez PT Orders: PT CONSULT: S/P Ortho Surgery Precautions: WBAT on the L LE with AD. Patient Profile/Admitting Diagnosis: Jo is a 59-year-old female with degenerative joint disease of the L knee and is status post left total knee send postoperative day 0. PMHX: All Active Problems (Updated 04/18/24 @ 09:43 by Singh Conteh MD) Arthritis of left knee (Acute) History of total left knee replacement (Acute 04/18/24) Arthritis of left hip (Acute) Left hip pain (Acute) Diabetes mellitus (Chronic) Vitamin D deficiency (Acute) B-cell chronic lymphocytic leukemia (Acute) Mixed hyperlipidemia (Acute) Essential hypertension (Acute) Medical History Chronic a-fib Per pt. states she no longer has this as she had a cardiac ablation done 4 [place] ago [id number] deficiency Surgical History History of cardiac radiofrequency ablation (~2019) Status post cholecystectomy H/O right breast biopsy History of carpal tunnel release Left Social History/Home Situation: Lives with in a private home with 2 steps to enter. Has a flight of steps to the second floor of the house where bedroom is. Retired employee. Equipment Owned/DME: None Subjective: Reported intermittent nausea and lightheadedness throughout session. Nurse Sloane gave patient IV Zofran midway through the walk to minimize symptoms. Objective: General Observation: Forrest wraps to left knee. Cryo/Cuff to left knee. TDS as to right leg and foot. Mental Status: A and O x 4 [] Pain: 2-3/10 in the L knee ROM: Right Lower Extremity: Hip flexion WFL. Hip abduction WFL. Knee flexion WFL. Ankle dorsiflexion WFL. Ankle plantarflexion WFL. Left Lower Extremity: Hip flexion WFL. Hip abduction WFL. Knee flexion 0-90 degrees. Ankle dorsiflexion WFL. Ankle plantarflexion WFL. Strength: Right Lower Extremity: Hip flexors 5/5. Hip abductors 5/5. Knee flexors 5/5. Knee extensors 5/5. Ankle dorsiflexors 5/5. Ankle plantarflexors 5/5. Left Lower Extremity:Hip flexors 5/5. Hip abductors 5/5. Knee flexors 3-/5. Knee extensors 3/5. Ankle dorsiflexors 5/5. Ankle plantarflexors 5/5. Sensation: Intact tested pain and light pressure and bilateral lower extremities Bed Mobility/Transfers: Minimal cueing provided for use of B hands as needed for support, movement sequence, AD management, and posture to reduce fall risk and minimize pain report Supine to sit stand by assist Sit to stand contact guard assist with FWW Stand to sit contact guerline assist with FWW Bed to chair contact guard assist with FWW GAIT: Facilitated safe and correct performance of level surface ambulation covering a distance of 150 feet with reciprocal step-through heel-toe gait pattern using front wheeled walker with minimal verbal cueing for AD management, limb sequence/advancement, and posture to minimize pain report and reduce fall risk. STAIRS: Guided patient with safe and correct negotiation of 6 x 4 inch steps and 4 x 6 inch steps holding onto bilateral rails with step to gait pattern wearing minimal verbal cueing to increase knee flexion on the left during each ascent and for correct hand placement as well as correct sequence to minimize pain report and reduce fall risk. Balance: Static Sitting: Normal Dynamic Sitting: Normal Static Standing: Fair Dynamic Standing: Fair Special Tests: Mobility Limitations Standardized Measure [facility] AM-PAC 6 clicks Basic Mobility Inpatient Short Form: Raw Score: 19 CMS Score: 42% deficit Informed Consent/Education: Patient instructed in purpose of PT consult. Packet containing TKA exercise protocol has been given to patient. Education and training on initial set of exercises that can be done at home have been completed with patient. Trained patient with correct performance of exercises below to maximize motor control, joint flexibility, soft tissue extensibility of the [] knee musculature: Access Code: [email or web address] URL: [email or web address] Date: 04/17/2024 Prepared by: Joie Melgoza Exercises - Supine Quad Set - 1 x daily - 7 x weekly - 1 sets - 10 reps - 5 hold - Supine Heel Slide - 1 x daily - 7 x weekly - 1 sets - 10 reps - 5 hold - Supine Ankle Pumps - 1 x daily - 7 x weekly - 1 sets - 10 reps - 5 hold - Small Range Straight Leg Raise - 1 x daily - 7 x weekly - 1 sets - 10 reps - 5 hold - Seated March - 1 x daily - 7 x weekly - 1 sets - 10 reps - 5 hold Assessment: Jo is a 59-year-old female with degenerative joint disease of the left knee and is status post left total knee arthroplasty on postoperative day 0. Assessment limited and length send patient's intermittent report of lightheadedness and nausea which Nurse Sloane managed during sessio.n She requires the use of a front wheeled walker for mobility performance to maximize independence and reduce fall risk. Patient presents with clinical signs and symptoms consistent with current/admitting diagnoses that have resulted to mobility limitations, gait instability, generalized weakness, and impairment of motor control as demonstrated by the following impairment level findings: 1. Decreased strength to left knee major muscle groups 2. Impaired standing balance 3. Limitation of joint range of motion in left knee Impairments are contributing to the following functional limitations: 1. Inability to safely ambulate without assistive device 2. Increase completion time for mobility ADL performance 3. Increased fall risk Patient is assessed as a 98401 moderate complexity based on the following: History: 59-year-old female with impairment level findings, functional limitations, and past medical history as indicated above Examination: Demonstrable impairment in strength, balance, and mobility level with underlying impairments and functional limitations as documented above Presentation: Evolving Decision Makin moderate complexity Goals: N/A. PT evaluation and 1-2 treatment sessions only for functional mobility training using recommended AD and for HEP instruction. Plan of Care/Treatment Plan: N/A. PT evaluation and 1-2 treatment session only for functional mobility training using recommended AD and for HEP instruction. DISCHARGE RECOMMENDATIONS: Home when medically cleared by orthopedic surgeon. Recommend outpatient PT services in order to optimize functional mobility outcomes and facilitate return to independent community ambulation without an assistive device. TREATMENT CODE/TIME: 92198 x 20 minutes fr 1 unit, 52922 x 31 minutes for 2 units (14:23-15:14). Thank you for the opportunity to participate in the care of this patient. Please sign an return this page within 30 days if you agree with the above POC. Thank you! Physician Signature Date [facility] Joie Melgoza PT, DPT, CLT [facility] [place], [place]
[2024-04-18] MEDS: Ondansetron 4 MG/2 ML VIAL IVP ×2 (15:14→15:15)
== END 2024-04-18 15:35 | disposition home or self-care (01) ==
LOC: SUR 08:50
PROVIDERS: PCP Family Medicine; Visit Provider Student in an Organized Health Care Education/Training Program
PROC: (CPT 27447; principal; 2024-04-18 09:45)
DX: M17.12 Unilateral primary osteoarthritis, left knee (principal); E53.8 Deficiency of other specified B group vitamins; E11.9 Type 2 diabetes mellitus without complications; C91.10 Chronic lymphocytic leukemia of B-cell type not having achieved remission; I10 Essential (primary) hypertension; E78.2 Mixed hyperlipidemia; E55.9 Vitamin D deficiency, unspecified
CPT/HCPCS: 27447; 76942; 97162; 97530; C1776; J0665; J0690; J1100; J2371; J2401; J2405; J2704

== ENCOUNTER 2024-04-30 15:38 | Outpatient (CLI) | payer OTHER, SELFPAY ==
--- NOTE | 2024-04-30 13:15 | DI.RAD_ITS ---
Exam(s) XR STANDING ALIGNMENT EXAM: XR STANDING ALIGNMENT CLINICAL HISTORY: L TKR. TECHNIQUE: 2D digital imaging was performed. COMPARISON: CR XR STANDING ALIGNMENT from 03/05/2024 CR XR KNEE LT 1V from 04/30/2024 FINDINGS: There has been interval placement of a left knee prosthesis which appears satisfactory. The opposite-right knee appears unremarkable. Hips appear unremarkable as do the ankles. Bone densi ty normal. No osseous lesions. Sacroiliac joints appear unremarkable. There is, however, some tilting of the pelvis now evident. The superior aspect of the right femoral head is located approximately 1 cm higher than the left side. This finding was not evident on prior images of 03/05/2024. IMPRESSION: Left knee prosthesis appears satisfactory. Right knee appears unremarkable Pelvic tilt noted which was not previously evident on 04/30/2024. DATA REPOSITORY: RADIATION DOSE DELIVERED:
--- NOTE | 2024-04-30 13:15 | DI.RAD_ITS ---
Exam(s) XR KNEE LT 1V EXAM: XR KNEE LT 1V CLINICAL HISTORY: L TKR. TECHNIQUE: 2D digital imaging was performed. COMPARISON: CR XR KNEE LT 1V from 03/05/2024 FINDINGS: Single lateral view Satisfactory position alignment of the components of the recently placed prosthesis. No fracture or loosening evident this lateral view. IMPRESSION: Satisfactory appearance on this single lateral view. DATA REPOSITORY: RADIATION DOSE DELIVERED:
== END 2024-04-30 15:39 | disposition home or self-care (01) ==
LOC: DIORS 15:38
PROVIDERS: PCP Family Medicine; Referring Provider Family Medicine; Visit Provider Physician Assistant
DX: Z96.652 Presence of left artificial knee joint (principal)
CPT/HCPCS: 73560; 77073

== ENCOUNTER 2024-05-04 09:40 | Outpatient (CLI) | payer OTHER, SELFPAY ==
[2024-05-04 09:32] LABS: Abs Immature Grans 0.08 10^3/uL (0.0-0.06); Absolute Basophil Count 0.08 10^3/uL (0.0-0.2); Absolute Lymphocyte Count 2.26 10^3/uL (1.2-3.4); Absolute Monocyte Count 0.64 10^3/uL (0.1-0.8); Basophils % 0.7 %; Eosinophils % 4.4 %; HCT 35.2 % (36.0-46.0); HGB 11.3 g/dL (11.2-15.7); Immature Grans % 0.7 %; Lymphocytes % 20.1 %; MCH 29.4 pg (27.0-33.0); MCHC 32.1 % (32.0-36.0); MCV 91 fL (80-95); MPV 8.3 fL (8.0-11.0); Monocytes % 5.7 %; Neutrophils % 68.4 %; Platelet Count 459 10^3/uL (130-400); RBC 3.85 10^6/uL (3.93-5.22); RDW 13.7 % (11.7-14.6); RDW-SD 44.9 fL; WBC 11.26 10^3/uL (4.4-10.8)
[2024-05-04 09:54] LABS: ALT 63 U/L (14-59); AST 25 U/L (15-37); Albumin 3.8 g/dL (3.4-5.0); Alkaline Phosphatase 196 U/L (46-116); Anion Gap 13.5 mmol/L (3-11); BUN 20 mg/dL (7-18); Bilirubin, Total 0.92 mg/dL (0.2-1.0); CO2 23.5 mmol/L (21.0-32.0); Calcium 9.5 mg/dL (8.5-10.1); Chloride 106 mmol/L (98-107); Glucose 94 mg/dL (74-106); LDH 245 U/L (81-234); Potassium 4.5 mmol/L (3.5-5.1); Sodium 143 mmol/L (136-145); Total Protein 8.4 g/dL (6.4-8.2)
== END 2024-05-04 09:41 | disposition home or self-care (01) ==
LOC: LBO 09:41
PROVIDERS: PCP Family Medicine; Visit Provider Internal Medicine Hematology & Oncology
DX: C91.12 Chronic lymphocytic leukemia of B-cell type in relapse (principal)
CPT/HCPCS: 36415; 80053; 83615; 85025

== ENCOUNTER → 2024-05-28 14:47 | Outpatient (BNVA) | payer OTHER, SELFPAY | PROVIDERS: PCP Family Medicine; Visit Provider Student in an Organized Health Care Education/Training Program | DX: Z47.1 Aftercare following joint replacement surgery (principal); Z96.652 Presence of left artificial knee joint | CPT/HCPCS: 99024 ==

== ENCOUNTER → 2024-07-09 14:36 | Outpatient (BNVA) | payer OTHER, SELFPAY | PROVIDERS: PCP Family Medicine; Referring Provider Family Medicine; Visit Provider Physician Assistant | DX: Z96.652 Presence of left artificial knee joint (principal); Z47.1 Aftercare following joint replacement surgery; L72.0 Epidermal cyst | CPT/HCPCS: 99024 ==

== ENCOUNTER 2024-07-17 13:19 | Outpatient (CLI) | payer OTHER, SELFPAY ==
[2024-07-17 09:59] LABS: ALT 68 U/L (14-59); AST 29 U/L (15-37); Albumin 3.7 g/dL (3.4-5.0); Alkaline Phosphatase 133 U/L (46-116); BUN 13 mg/dL (7-18); Bilirubin, Total 0.62 mg/dL (0.2-1.0); CREATININE 0.9 mg/dL (0.55-1.02); Calculated LDL 44 mg/dL (<100); Chloride 106 mmol/L (98-107); Cholesterol 104 mg/dL (<200); Estimated GFR 73.64 (mL/min/1.73m2); Glucose 105 mg/dL (74-106); HDL Cholesterol 49 mg/dL (40-60); Potassium 4.1 mmol/L (3.5-5.1); Sodium 144 mmol/L (136-145); Total Protein 7.8 g/dL (6.4-8.2); Triglyceride 55 mg/dL (<150); Vitamin B12 208 pg/mL (193-986)
== END 2024-07-17 13:20 | disposition home or self-care (01) ==
LOC: LBO 13:21
PROVIDERS: PCP Family Medicine; Visit Provider Family Medicine
DX: R73.03 Prediabetes (principal); I10 Essential (primary) hypertension; E53.8 Deficiency of other specified B group vitamins; E78.2 Mixed hyperlipidemia
CPT/HCPCS: 36415; 80053; 80061; 82607; 83036

== ENCOUNTER 2025-01-10 17:59 | Outpatient (REF) | payer OTHER, SELFPAY ==
[2025-01-10 17:03] LABS: Hemoglobin A1C 6.2 % (<5.7)
[2025-01-10 17:07] LABS: Iron 69 ug/dL (50-170); Total Iron Binding Capacity 378 ug/dL (250-450); Transferrin Sat 18 % (15-50)
[2025-01-10 17:20] LABS: ALT 64 U/L (14-59); AST 30 U/L (15-37); Alkaline Phosphatase 161 U/L (46-116); Anion Gap 11.6 mmol/L (3-11); BUN 16 mg/dL (7-18); Bilirubin, Total 1.2 mg/dL (0.2-1.0); CO2 23.4 mmol/L (21.0-32.0); CREATININE 0.8 mg/dL (0.55-1.02); Calcium 9.1 mg/dL (8.5-10.1); Calculated LDL 91 mg/dL (<100); Chloride 106 mmol/L (98-107); Cholesterol 167 mg/dL (<200); Estimated GFR 84.82 (mL/min/1.73m2); Ferritin 46 ng/mL (8-252); Glucose 107 mg/dL (74-106); HDL Cholesterol 51 mg/dL (>or=50); Sodium 141 mmol/L (136-145); Total Protein 7.5 g/dL (6.4-8.2); Triglyceride 129 mg/dL (<150)
[2025-01-10 18:12] LABS: GGT 80 U/L (5-55)
== END 2025-01-10 18:00 | disposition home or self-care (01) ==
LOC: NCHCN 17:59
PROVIDERS: PCP Family Medicine; Visit Provider Family Medicine
DX: R73.03 Prediabetes (principal); E78.2 Mixed hyperlipidemia; R74.8 Abnormal levels of other serum enzymes
CPT/HCPCS: 80053; 80061; 82728; 82977; 83036; 83540; 83550

== ENCOUNTER 2025-01-17 01:57 | Outpatient (CLI) | payer OTHER, SELFPAY ==
--- NOTE | 2025-01-17 | DI.MAMMO_ITS ---
Exam(s) MAMMO SCREENING EXAM: MAMMO SCREENING CLINICAL HISTORY: SCREENING, Z12.31. TECHNIQUE: Bilateral full field digital CC and MLO mammographic images were obtained with 3D tomosynthesis and utilizing computer aided detection (CAD). COMPARISON: Prior outside mammograms were reviewed. FINDINGS: There has been no significant change in the appearance and distribution of the fibroglandular tissue. There are no new findings in the vicinity of 2 adjacent biopsy marker devices which are located in the lateral aspect of the right breast There are no new spiculated masses nor new malignant appearing microcalcification groups. There is no significant architectural distortion nor skin thickening-retraction. IMPRESSION: No radiographic evidence of malignancy. BI-RADS Category 1 - Negative Breast Density - Category B - There are scattered areas of fibroglandular density. Breast density Category C or D implies that the patient has dense breast tissue. Dense breast tissue can make it harder to find cancer on a mammogram. Dense breast tissue is also associated with an increased risk of breast cancer. This information about the result of the mammogram report was provided to the patient to raise their awareness. Use this report when you speak with the patient about their risks for breast cancer, which includes their family history. At that time, you may recommend additional screening tests (Ultrasound or MRI) as these tests may add significant information. A negative radiographic report should not delay biopsy if a dominant or clinically suspicious mass is present. Up to ten percent of cancers are not identified on mammography. A negative report may reinforce clinical impression. Adenosis and dense breasts may obscure an underlying neoplasm. False positive reports average 6 to 10%. Patient will receive a letter notifying them of these results.
== END 2025-01-17 02:17 ==
PROVIDERS: PCP Family Medicine; Visit Provider Family Medicine
DX: Z12.31 Encounter for screening mammogram for malignant neoplasm of breast (principal); R92.323 Mammographic fibroglandular density, bilateral breasts
CPT/HCPCS: 77063; 77067

== ENCOUNTER 2025-05-06 15:16 | Outpatient (CLI) | payer OTHER, SELFPAY ==
--- NOTE | 2025-05-06 13:45 | DI.RAD_ITS ---
Exam(s) XR KNEE LT 2V AP,LAT EXAM: XR KNEE LT 2V AP,LAT INDICATION: ANNUAL F/U L TKA. COMPARISON: CR XR KNEE LT 1V from 04/30/2024 TECHNIQUE: 2D digital imaging was performed. Two views. FINDINGS: There is stable alignment of the total knee prosthesis. There are no abnormal surrounding bony lucencies. A small joint effusion remains present. DATA REPOSITORY: RADIATION DOSE DELIVERED:
== END 2025-05-06 15:17 | disposition home or self-care (01) ==
LOC: DIORS 15:16
PROVIDERS: PCP Family Medicine; Visit Provider Student in an Organized Health Care Education/Training Program
DX: Z96.652 Presence of left artificial knee joint (principal); M25.462 Effusion, left knee
CPT/HCPCS: 73560

== ENCOUNTER 2025-05-20 08:13 | Outpatient (CLI) | payer OTHER, SELFPAY ==
[2025-05-20 08:22] LABS: Abs Immature Grans 0.01 10^3/uL (0.0-0.06); HCT 40.0 % (36.0-46.0); HGB 13.6 g/dL (11.2-15.7); Immature Grans % 0.2 %; MCH 29.5 pg (27.0-33.0); MCHC 34.0 % (32.0-36.0); MCV 87 fL (80-95); MPV 8.9 fL (8.0-11.0); Platelet Count 294 10^3/uL (130-400); RBC 4.61 10^6/uL (3.93-5.22); RDW 13.2 % (11.7-14.6); RDW-SD 41.1 fL; WBC 6.34 10^3/uL (4.4-10.8)
[2025-05-20 09:25] LABS: ALT 34 U/L (14-59); AST 21 U/L (15-37); Albumin 3.8 g/dL (3.4-5.0); Alkaline Phosphatase 150 U/L (46-116); Anion Gap 11.9 mmol/L (3-11); BUN 15 mg/dL (7-18); Bilirubin, Total 1.0 mg/dL (0.2-1.0); CO2 24.1 mmol/L (21.0-32.0); Calcium 8.7 mg/dL (8.5-10.1); Chloride 106 mmol/L (98-107); Glucose 100 mg/dL (74-106); LDH 164 U/L (81-234); Potassium 4.1 mmol/L (3.5-5.1); Sodium 142 mmol/L (136-145); Total Protein 8.0 g/dL (6.4-8.2)
== END 2025-05-20 08:14 | disposition home or self-care (01) ==
LOC: LBO 08:17
PROVIDERS: PCP Family Medicine; Visit Provider Nurse Practitioner Adult Health
DX: C83.00 Small cell B-cell lymphoma, unspecified site (principal); C91.12 Chronic lymphocytic leukemia of B-cell type in relapse
CPT/HCPCS: 36415; 80053; 82784; 83615; 85025